=== PATIENT | female | born 1960 | race Caucasian/White ===

== ENCOUNTER 2020-03-26 08:47 | Emergency (ER) | payer MEDICAID ==
[~2020-03-26] VITALS: Ht 149.9 cm; Wt 61.2 kg
[2020-03-26] MEDS ORDERED: FAMOTIDINE 40 M40 M1 PO (09:00)
[2020-03-26] MEDS ORDERED: LEVOXYL100 MCG PO (09:00)
[2020-03-26] MEDS ORDERED: FERROUS SULFAT325 MG PO (09:00)
[2020-03-26] MEDS ORDERED: ZESTRIL10 MG PO (09:01)
[2020-03-26] MEDS ORDERED: PROTONIX40 M2 PO (09:01)
[2020-03-26] MEDS ORDERED: LIPITOR40 MG PO (09:01)
[2020-03-26] MEDS ORDERED: ONDANSETRON ODT4 MG PO (09:01)
[2020-03-26 09:02] LABS: ABSOLUTE EOSINOPHILS 0.1 thou/uL (0.0-0.7); ABSOLUTE LYMPHOCYTES 1.6 thou/uL (0.8-5.3); ABSOLUTE MONOCYTES 0.5 thou/uL (0.0-1.2); ABSOLUTE NEUTROPHILS 4.6 thou/uL (1.6-8.1); BASOPHILS 0.4 %; EOSINOPHILS 1.1 %; LYMPHOCYTES 22.9 %; MCH 29.4 pg (26.0-34.0); MCHC 34.1 g/dL (28.0-37.0); MONOCYTES 7.7 %; MPV 9.1 fl. (7.2-11.1); NUCLEATED RBCS 0 /100WBC; PLATELET COUNT* 163 thou/uL (150-400); POLYS 67.9 %; RBC 4.41 mil/uL (4.20-5.00); WBC 6.8 thou/uL (4.0-11.0)
[2020-03-26] MEDS ORDERED: TOPAMAX SPRINKL15 M1 PO (09:02)
[2020-03-26] MEDS ORDERED: PREMARIN30 GM TOP (09:02)
[2020-03-26] MEDS ORDERED: ELIQUIS5 MG PO (09:03)
[2020-03-26] MEDS ORDERED: PAZEO2.5 ML OPHTHALMIC (09:03)
[2020-03-26] MEDS ORDERED: ZYRTEC 10 MG TA10 MG PO (09:03)
[2020-03-26] MEDS ORDERED: JANUVIA25 MG PO (09:03)
[2020-03-26] MEDS ORDERED: CLONAZEPAM 0.50.5 M1 PO (09:04)
[2020-03-26] MEDS ORDERED: LITHIUM CARBON300 M6 PO (09:04)
[2020-03-26] MEDS ORDERED: MINIPRESS1 MG PO (09:04)
[2020-03-26] MEDS ORDERED: ACETAMINOPHEN500 M1 PO (09:05)
[2020-03-26] MEDS ORDERED: [UNRECOGNIZED DRUG - OTHER] IM (09:05)
[2020-03-26] MEDS ORDERED: FLONASE 0.05%50 MCG NASAL (09:06)
[2020-03-26 09:28] LABS: CALCIUM 9.4 mg/dL (8.5-10.1); CREATININE 1.9 mg/dL (0.6-1.3); POTASSIUM 4.6 mmol/L (3.5-5.1)
[2020-03-26 09:31] LABS: ALBUMIN 3.9 g/dL (3.4-5.0); TOTAL BILIRUBIN 0.6 mg/dL (<0.1-1.0)
[2020-03-26 10:13] VITALS: BP 92/52
[2020-03-26 10:14] LABS: URINE BILIRUBIN NEGATIVE (Negative); URINE BLOOD NEGATIVE (Negative); URINE CLARITY CLEAR; URINE COLOR YELLOW; URINE GLUCOSE-RANDOM NEGATIVE (Negative); URINE KETONES NEGATIVE (Negative); URINE LEUKOCYTES-REFLEX NEGATIVE (Negative); URINE NITRITE-REFLEX NEGATIVE (Negative); URINE PROTEIN NEGATIVE (Negative); URINE SPECIFIC GRAVITY <= 1.005 (1.005-1.030); URINE UROBILINOGEN 0.2 E.U./dl (0.2-1.0)
--- NOTE | 2020-03-26 15:02 | EKG ---
[place] [address] ELECTROCARDIOGRAM REPORT Name: ESTEBAN DUEÑAS Room: [facility]#: [id number] Admission: 03/26/20 Attend Phys: Discharge: 03/26/20 Date of : 64 Date of Service: 03/26/20911 Report #: [id number] THIS REPORT FOR: //name// 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: : 1960 Requested By: Kevin Brower Order Number: [id number] MD: Wilder Mcguire Measurements Intervals Wright Rate: 81 P: 63 CO: 176 QRS: 46 QRSD: 89 T: 42 QT: 403 QTc: 468 Interpretive Statements Sinus rhythm Abnormal R-wave progression, early transition Borderline ST elevation, lateral leads Baseline wander in lead(s) II No previous ECG available for comparison Electronically Signed On 03-26-2020 15:02:34 CDT by Wilder Mcguire [email or web address] <ELECTRONICALLY SIGNED> By: Wilder Mcguire MD, [facility] 03/26/20 1502 1 1 Wilder Mcguire MD, [facility] /EPI
== END 2020-03-26 10:14 | disposition home or self-care (01) ==
LOC: M.ERS 08:47
PROVIDERS: Family Medicine
DX: R42 Dizziness and giddiness (principal); R51 Headache; Z79.899 Other long term (current) drug therapy; Z88.0 Allergy status to penicillin; Z88.2 Allergy status to sulfonamides; Z88.8 Allergy status to other drugs, medicaments and biological substances; Z90.710 Acquired absence of both cervix and uterus